=== PATIENT | female | born 1970 | race African-American/Black ===

== ENCOUNTER 2021-05-02 18:48 | Emergency (ER) | payer OTHER ==
[2021-05-02 18:56] VITALS: BP 133/72; PULSE 65; TEMP 97.9; BMI 24.7
[2021-05-02] MEDS ORDERED: DIPHTH,PERTUSS(ACELL),TET 0.5 ML DISP.SYRIN IM ONE ×2 (19:39→19:42)
[2021-05-02] MEDS ORDERED: IBUPROFEN 600 MG TABLET (FP) PO ONE ×2 (19:40→19:42)
== END 2021-05-02 21:18 | disposition home or self-care (01) ==
LOC: JERFT 18:48
PROC: 3E0234Z Introduction of Serum, Toxoid and Vaccine into Muscle, Percutaneous Approach (ICD-10-PCS; principal; 2021-05-02)
DX: S61.301A Unspecified open wound of left index finger with damage to nail, initial encounter (principal); W26.0XXA Contact with knife, initial encounter; Y93.G1 Activity, food preparation and clean up
CPT/HCPCS: 90471; 90715; 99284-25

== ENCOUNTER 2021-08-19 15:47 | Emergency (ER) | payer OTHER ==
[2021-08-19 15:56] VITALS: BP 144/81; PULSE 66; TEMP 97; BMI 22.1
[2021-08-19] MEDS ORDERED: DOXYCYCLINE HYCLATE 100 MG CAPSULE PO ONE ×2 (17:23→17:43)
[2021-08-19] MEDS ORDERED: cefTRIAXone SODIUM 1 GM VIAL ONE (17:28)
[2021-08-19] MEDS ORDERED: LIDOCAINE HCL 1%, 10 MG/ML (20ML VIAL) ONE (17:28)
[2021-08-19 18:05] LABS: HCG,QUALITATIVE URINE Negative
[2021-08-19 18:13] LABS: EPI CELLS 3 /uL (0-25.1); HYALINE CASTS 1 /uL (0-3.1); PH,URINE 6.5 (5.0-8.0); URINE APPEARANCE TURBID; URINE BACTERIA 96 /uL (0-1359); URINE BILIRUBIN NEGATIVE (NEGATIVE); URINE COLOR DK YELLOW; URINE GLUCOSE (UA) 1+ (NEGATIVE); URINE KETONE TRACE (NEGATIVE); URINE LEUK ESTERASE 3+ (NEGATIVE); URINE NITRITE NEGATIVE (NEGATIVE); URINE PROTEIN 1+ (NEGATIVE); URINE RBC 898 /uL (0-23.9); URINE WBC 2511 /uL (0-25.8)
[2021-08-19 18:52] LABS: SYPHILIS W/ RPR CONF NON-REACTIVE (NONREACTIVE)
[2021-08-19 19:20] LABS: HIV INTERPRETATION NEGATIVE (NEGATIVE)
== END 2021-08-19 21:15 | disposition home or self-care (01) ==
LOC: JER 15:47
DX: N30.01 Acute cystitis with hematuria (principal); Z20.3 Contact with and (suspected) exposure to rabies
CPT/HCPCS: 36415; 81003; 84703; 86780; 87070; 87086; 87186; 87205; 87389; 87491; 87591; 87661; 99284-25

== ENCOUNTER 2021-09-17 19:38 | Emergency (ER) | payer OTHER ==
[2021-09-17 20:02] VITALS: BP 155/77; PULSE 69; TEMP 97.9; BMI 22.1
[2021-09-17 21:19] LABS: PH,URINE 5.5 (5.0-8.0); URINE APPEARANCE CLEAR; URINE BILIRUBIN NEGATIVE (NEGATIVE); URINE COLOR YELLOW; URINE GLUCOSE (UA) NEGATIVE (NEGATIVE); URINE KETONE NEGATIVE (NEGATIVE); URINE LEUK ESTERASE NEGATIVE (NEGATIVE); URINE NITRITE NEGATIVE (NEGATIVE); URINE PROTEIN NEGATIVE (NEGATIVE); URINE UROBILINOGEN 0.2 mg/dL (0.2-1.0)
== END 2021-09-17 22:56 | disposition home or self-care (01) ==
LOC: JER 19:38
DX: K59.00 Constipation, unspecified (principal)
CPT/HCPCS: 74018-TC-FY; 81003; 99284-25